=== PATIENT | female | born 2000 | race Caucasian/White ===

== ENCOUNTER 2025-07-09 09:09 | Outpatient (CLI) | payer BC ==
[2025-07-09 10:28] LABS: Hematocrit 39.6 % (34.9-44.5); Hemoglobin 13.5 g/dL (12.0-15.5); Mean Corpuscular Hemoglobin 30.0 pg (27.0-33.0); Mean Corpuscular Volume 88.0 fL (81.6-98.3); Platelet Count 346 10x3/uL (150-450); Red Blood Cell (RBC) Count 4.50 10x6/uL (3.90-5.03); White Blood Cell (WBC) Count 7.11 10x3/uL (3.5-10.5)
[2025-07-09 10:37] LABS: BHCG - Serum Negative (NEGATIVE); Pregs Control Background? CLEAR/WHITE (CLR/WHITE); Pregs Control Bar Appear? YES (CONTROL BAR)
[2025-07-09 10:42] LABS: Anion Gap 11 mmol/L (10-20); BUN (Urea Nitrogen) 11 mg/dL (7.0-18.7); Calc. Creatinine Clearance 0 mL/min (70-130); Calcium 9.3 mg/dL (7.8-10.44); Carbon Dioxide 23 mmol/L (22-29); Chloride 107 mmol/L (98-107); Glucose 88 mg/dL (70-105); Potassium 4.2 mmol/L (3.5-5.1); Sodium 137 mmol/L (136-145)
== END 2025-07-09 09:10 | disposition home or self-care (01) ==
LOC: CSHLAB 09:09
PROVIDERS: ATTEND Orthopaedic Surgery
DX: Z01.818 Encounter for other preprocedural examination (principal); M21.42 Flat foot [pes planus] (acquired), left foot
CPT/HCPCS: 80048; 84703; 85027; 93005; 93010

== ENCOUNTER 2025-07-13 19:35 | Emergency (ER) | payer BC, SELFPAY ==
[~2025-07-13 19:35] MED LIST: Iopamidol 300 61% 100 ML VIAL FS ONE
[2025-07-13 20:46] LABS: BHCG - Serum Negative (NEGATIVE); Pregs Control Background? CLEAR/WHITE (CLR/WHITE); Pregs Control Bar Appear? YES (CONTROL BAR)
[2025-07-13 20:51] LABS: ALT (SGPT) 8 U/L (Less than 34); AST (SGOT) 23 U/L (11-34); Albumin 4.2 g/dL (3.1-4.5); Alkaline Phosphatase 57 U/L (40-110); Anion Gap 13 mmol/L (10-20); BUN (Urea Nitrogen) 13 mg/dL (7.0-18.7); Bilirubin, Total 0.2 mg/dL (0.3-1.2); Calc. Creatinine Clearance 0 mL/min (70-130); Calcium 9.0 mg/dL (7.8-10.44); Carbon Dioxide 20 mmol/L (22-29); Chloride 108 mmol/L (98-107); Globulin 2.8 g/dL (2.4-3.5); Glucose 196 mg/dL (70-105); Lipase 70 U/L (8-78); Potassium 3.8 mmol/L (3.5-5.1); Sodium 137 mmol/L (136-145)
[2025-07-13] MEDS ORDERED: Milk Of Magnesia 30 ML UDCUP ONE (21:09)
[2025-07-13] MEDS ORDERED: Famotidine/PF 20 mg/2ml Vial ONE (21:10)
[2025-07-13] MEDS ORDERED: Lidocaine Viscous Sol 2% 15 ml UD Cup ONE (21:10)
[2025-07-13 21:11] LABS: #Basophils Less than 0.03 10x3/uL (0.0-0.2); #Eosinophils Less than 0.03 10x3/uL (0.0-0.5); #Monocytes 0.13 10x3/uL (0.0-1.1); #Neutrophils 8.79 10x3/uL (1.5-8.4); %Basophils 0.1 % (0.0-2.0); %Eosinophils 0.0 % (0.0-6.0); %Lymphocytes 6.6 % (18.0-47.0); %Monocytes 1.4 % (0.0-10.0); %Neutrophils 91.4 % (40.0-75.0); Hematocrit 36.6 % (34.9-44.5); Hemoglobin 12.9 g/dL (12.0-15.5); Mean Corpuscular Hemoglobin 30.6 pg (27.0-33.0); Mean Corpuscular Volume 86.7 fL (81.6-98.3); Platelet Count 354 10x3/uL (150-450); Red Blood Cell (RBC) Count 4.22 10x6/uL (3.90-5.03); White Blood Cell (WBC) Count 9.61 10x3/uL (3.5-10.5)
== END 2025-07-13 22:10 | disposition home or self-care (01) ==
LOC: CSHERS 19:35
DX: K29.70 Gastritis, unspecified, without bleeding (principal); E86.0 Dehydration
CPT/HCPCS: 36415; 71045; 71275; 80053; 83690; 84703; 85025; 85379; J1308

== ENCOUNTER 2025-07-15 02:46 | Emergency (ER) | payer BC ==
[2025-07-15] MEDS ORDERED: Ketorolac Tromethamine 30 MG (1 mL) VIAL ONE (03:15)
== END 2025-07-15 03:30 | disposition home or self-care (01) ==
LOC: CSHERS 02:46
DX: G89.18 Other acute postprocedural pain (principal); M79.672 Pain in left foot
CPT/HCPCS: 96372; 99283; J1885